=== PATIENT | male | born 1985 | race Caucasian/White ===

== ENCOUNTER 2020-10-03 19:02 | Emergency (ER) | payer OTHER, SELFPAY ==
--- NOTE | ~2020-10-03 | CT_ITS ---
EXAMINATION: CT brain wo con EXAM DATE: 10/03/2020 21:56 INDICATION: Seizure, right orbit injury. TECHNIQUE: Spiral CT of the head was performed without contrast. Axial, coronal and sagittal images were reviewed. The dose-length product (DLP) for this examination was 605.33 mGy-cm. The exposure w as tailored according to patient size, and iterative reconstruction (ASIR) was used as additional dos e reduction technique. There is no prior study for comparison. FINDINGS: There is no acute intraparenchymal hemorrhage. No evidence of intraparenchymal brain mass lesion. No evidence of acute infarction. There is no mass effect or midline shift. The ventricles are normal in size. There are no extra-axial collections. There are no acute calvarial fractures. T he orbits are unremarkable. Right periorbital soft tissue swelling. The visualized sinuses and masto id air cells are well aerated. IMPRESSION: 1. No acute intracranial findings. 2. Right periorbital swelling. Reviewed, dictated and finalized at location .
[2020-10-03 19:13] VITALS: BP 146/96; PULSE 88; RESP 13; TEMP 37.3; O2SAT 100
--- NOTE | 2020-10-03 19:41 | ECG_ITS ---
Measurements Intervals [place] Rate: 87 P: 72 AL: 170 QRS: 66 QRSD: 116 T: 53 QT: 366 QTc: 442 Interpretive Statements SINUS RHYTHM INTRAVENTRICULAR CONDUCTION DELAY DELAYED PRECORDIAL R/S TRANSITION BASELINE ARTIFACT- I, II, III, AVR, AVL, AVF, V1-V6 BORDERLINE ECG Electronically Signed On 10-04-2020 6:13:22 CDT by Jose Padron D.O.
--- NOTE | 2020-10-03 19:47 | ED.SEIZURE ---
HPI - Seizure General Chief Complaint: Seizure Stated Complaint: Seizure ?Alcohol Withdrawal Time Seen by Provider: 10/03/20 19:09 Source: patient and RN notes reviewed Mode of arrival: ambulatory Limitations: no limitations History of Present Illness HPI Narrative: This is a 35 year old male with history of alcohol abuse, seizures and chronic pancreatitis who presents for evaluation of alcohol withdrawal and abdominal pain. Patient states he had a seizure this morning, and he was evaluated at [facility]. He was given IVF, Ativan and vitamins at ER and he was discharged. HE states he was initially feeling ok but he started to suffered shakiness due to alcohol withdrawal so he came to [place]. He was concerned he may suffer another seizure without additional medication. He states he normally drinks approximately 12 pack beer per day, but he developed worse diffuse abdominal pain with nausea and vomiting 2 days ago. He states he has been unable to eat or drink. He reports his pain radiates into his back , and this is similar to previous episode of pancreatitis. He denies vomiting or diarrhea today but he states his abdominal pain is getting worse. Related Data Allergies Allergy/AdvReac Type Severity Reaction Status Date / Time amoxicillin Allergy Redness of Verified 10/03/20 19:58 Skin Penicillins Allergy Redness of Verified 10/03/20 19:58 Skin Review of Systems Review of Systems: All systems reviewed & are unremarkable except as noted in HPI and below PMFSH Past Medical History Medical History (Updated 10/04/20 @ 00:00 by Background Daemon) Alcohol abuse Alcohol withdrawal Hypertension Pancreatitis Surgical History Surgical History (Updated 10/03/20 @ 20:18 by Zunilda Howard MD) H/O wrist surgery Social History Social History (Updated 10/03/20 @ 20:18 by Zunilda Howard MD) Smoking status: Current every day smoker Alcohol intake: current Substance use type: marijuana Gender identity (if verbalized by the patient): Male Exam Const: General: no acute distress and alert Orientation/consciousness: patient oriented x3 HENMT: Head: normocephalic and atraumatic Face and sinus: face symmetric Eyes: Pupils: Equal, round and reactive pupils present EOM: EOMs intact bilaterally Other: right periorbital ecchymosis Chest: Chest palpation & inspection: normal inspection of the chest Resp: Effort & Inspection: normal respiratory effort and no retractions Auscultation: clear to auscultation bilaterally Cardio: Rate: regular rate Rhythm: regular rhythm Heart sounds: no murmurs GI: GI Palp: Yes Soft to palpation, Yes Tenderness to palpation present (GI) and No Guarding due to palpation present (GI) Auscultation: normal bowel sounds Neuro: General: patient oriented x3, moves all extremities and CN's II-XI intact bilaterally Psych: Affect: Anxious affect present Other: no hallucinations, he is tremulous Course Reevaluation(s) Reevaluation #1: PAtient states he feels better after taking librium. He feels comfortable with discharge home with librium. He states he has an appointment with his PCP Date: 10/03/20 Time: 22:06 Vital Signs Vital signs: Vital Signs Temperature 99.2 F 10/03/20 19:13 Pulse Rate 88 10/03/20 19:13 Respiratory Rate 13 10/03/20 19:13 Blood Pressure 146/96 H 10/03/20 19:13 Pulse Oximetry 100 10/03/20 19:13 Temperature 99.2 F 10/03/20 19:13 Pulse Rate 81 10/03/20 22:02 Respiratory Rate 18 10/03/20 22:02 Blood Pressure 117/77 10/03/20 22:02 Pulse Oximetry 99 10/03/20 22:02 MDM - Seizure Lab Data Attestation: I reviewed the patient's lab results. Result diagrams: 10/03/20 19:59 10/03/20 19:59 Labs: Lab Results 10/03/20 10/03/20 10/03/20 Range/Units 19:59 19:59 19:59 WBC 3.9 L (4.5-10.0) K/mm3 RBC 3.71 L (4.6-6.20) M/mm3 Hgb 11.6 L (14.0-18.0) g/dL H
[2020-10-03] MEDS: ONDANSETRON INJ 4 MG/2 ML VIAL IV PUSH (19:57)
[2020-10-03] MEDS: chlordiazePOXIDE (*CRX) 25 MG CAPSULE PO ×2 (19:57→21:15)
[2020-10-03] MEDS: PANTOPRAZOLE SODIUM IV 40 MG VIAL IV PUSH (19:57)
[2020-10-03 20:07] LABS: Basophils Percent Auto 0.5 % (0.2-1.2); Eosinophils Percent Auto 0.8 % (0-4.4); Hematocrit 35.4 % (42.0-52.0); Hemoglobin 11.6 g/dL (14.0-18.0); Immature Granulocyte Absolute 0.01 K/mm3 (0.00-0.031); Immature Granulocyte Percent A 0.3 % (0-0.5); Immature Platelet Fraction Pct 8.1 % (0.9-11.2); Lymphocytes Absolute Auto 0.53 K/mm3 (0.9-3.2); Lymphocytes Percent Auto 13.7 % (18.3-44.2); Mean Corpuscular HGB Conc 32.8 g/dl (32-36); Mean Corpuscular Hemoglobin 31.3 pg (26-34); Mean Corpuscular Volume 95.4 fl (80-100); Mean Platelet Volume 10.1 fl (7.4-10.4); Monocytes Absolute Auto 0.8 K/mm3 (0.1-0.6); Monocytes Percent Auto 19.7 % (2.6-8.5); Neutrophils Absolute Auto 2.5 K/mm3 (1.3-6.7); Platelet Count Result 60 k/mm3 (150-375); Red Blood Count 3.71 M/mm3 (4.6-6.20); Red Cell Distribution Width 15.1 % (11.5-14.5); White Blood Count 3.9 K/mm3 (4.5-10.0)
[2020-10-03 20:16] LABS: Ethanol < 10 mg/dL (<10)
[2020-10-03 20:17] LABS: Alanine Aminotransferase 97 U/L (4-50); Albumin Level 3.9 g/dL (3.5-5.1); Alkaline Phosphatase 118 U/L (38-126); Anion Gap 7 mmol/L (8-16); Aspartate Amino Transferase 230 U/L (17-59); Bilirubin,Total 1.3 mg/dL (0.2-1.3); Blood Urea Nitrogen 12 mg/dL (9-20); Calcium 8.9 mg/dL (8.4-10.2); Carbon Dioxide 27 mmol/L (22-30); Chloride 100 mmol/L (98-107); Estimated Glomerular Filt Rate > 60; Glucose 101 mg/dL (75-110); Lipase 121 U/L (23-300); Magnesium 1.6 mg/dL (1.6-2.3); Potassium 3.4 mmol/L (3.4-5.0); Sodium 134 mmol/L (137-145)
[2020-10-03 20:18] LABS: Platelet Estimate Decreased (Adequate)
[2020-10-03] MEDS: SODIUM CHLORIDE 0.9% IV 1,000 ML 999 ML IV CONT (20:22)
[2020-10-03 21:00] LABS: Add Urine Microscopic? YES; Appearance Urine Clear (Clear); Bilirubin Urine 2+ (Negative); Blood Urine Negative (Negative); Color Urine Amber (Yellow); Glucose Urine UA Negative (Negative); Ketones Urine 1+ mg/dL (Negative); Leukocyte Esterase Ur Negative LEU/UL (Negative); Mucus Urine Moderate /lpf; Nitrate Urine Negative (Negative); Protein Urine 3+ mg/dL (Negative); RBC Urine 0-2 /hpf (0-2); WBC Urine 0-3 /hpf
[2020-10-03 21:02] LABS: Specific Grav Ur 1.031 (1.001-1.035)
[2020-10-03 21:16] VITALS: BP 110/71; PULSE 89; RESP 16; O2SAT 100
[2020-10-03 22:02] VITALS: BP 117/77; PULSE 81; RESP 18; O2SAT 99
== END 2020-10-03 22:18 | disposition home or self-care (01) ==
PROVIDERS: Emergency Provider General Practice
DX: F10.939 Alcohol use, unspecified with withdrawal, unspecified (principal); Y90.0 Blood alcohol level of less than 20 mg/100 ml; I10 Essential (primary) hypertension; G40.909 Epilepsy, unspecified, not intractable, without status epilepticus
CPT/HCPCS: 36415; 70450; 80053; 80307; 81001; 83690; 83735; 85025; 85055; 93005; 96361; 96374; 96375; 99284; A9270; C9113; J2405; J7030

== ENCOUNTER 2020-11-03 13:11 | Observation (INO) | payer OTHER, SELFPAY ==
[2020-11-03] VITALS (10 sets, daily range): BP systolic 113–159; BP diastolic 68–99; PULSE 66–122; RESP 18–20; TEMP 36.6–37.1; O2SAT 97–100; BMI 23.8
--- NOTE | ~2020-11-03 | CT_ITS ---
EXAMINATION: CT abdomen pelvis w con DATE: 11/03/2020 14:11 INDICATION: Epigastric pain TECHNIQUE: Computed tomography (CT) of the abdomen and pelvis was performed with 100 mL Omnipaque-350 intravenous contrast. Automated exposure control and iterative reconstruction technique were employe d. The dose-length product was 346.49 mGy-cm. COMPARISON: None FINDINGS: Lung bases are clear. Heart size is normal. Small sliding-type hiatal hernia. Diffuse hepatic steatos is. 9 mm avidly enhancing nodule at the junctions of segment 4A and 4B of the liver most likely repre senting a flash filling hemangioma. Gallbladder, spleen, bilateral adrenal glands and kidneys are nor mal. There are multiple punctate dystrophic calcifications at the head of the pancreas likely sequela of chronic pancreatitis. No peripancreatic inflammatory stranding or peripancreatic fluid collection s to suggest acute pancreatitis although this can be radiographically occult. Small fat-containing um bilical hernia. Bowels including the appendix are normal. Bladder and prostate are normal. No free in traperitoneal gas or fluid. No pathologically enlarged abdominal or pelvic lymphadenopathy. Bones are unremarkable. IMPRESSION: 1. No acute intra-abdominal/pelvic process. There are however dystrophic calcifications at the head o f the pancreas suggesting chronic pancreatitis and given history of epigastric pain with correlate fo r elevated amylase and lipase levels as mild acute pancreatitis can be radiographically occult. 2. Small sliding-type hiatal hernia. 3. Diffuse hepatic steatosis. Reviewed, dictated and finalized at location A. IMPRESSION: 1. No acute intra-abdominal/pelvic process. There are however dystrophic calcif ications at the head of the pancreas suggesting chronic pancreatitis and given history of epigastric pain with correlate for elevated amylase and lipase level s as mild acute pancreatitis can be radiographically occult. 2. Small sliding-type hiatal hernia. 3. Diffuse hepatic steatosis.
--- NOTE | ~2020-11-03 | CT_ITS ---
EXAMINATION: CT brain wo con DATE: 11/03/2020 14:07 INDICATION: Seizure. TECHNIQUE: Computed tomography (CT) of the head was performed without intravenous contrast. Sagittal and coronal reconstructions were performed. The mA was adjusted according to patient size. Iterative reconstruction technique was employed. The dose-length product was 605.33 mGy-cm. COMPARISON: head CT dated 10/03/2020 FINDINGS: No acute intracranial hemorrhage, acute infarction or abnormal extra axial fluid collection. Ventricl es are normal and symmetric. No mass/mass effect. The orbits, paranasal sinuses and mastoid air cells are normal. IMPRESSION: 1. Normal head CT. Reviewed, dictated and finalized at location A. IMPRESSION: 1. Normal head CT.
--- NOTE | 2020-11-03 13:24 | ECG_ITS ---
Measurements Intervals [place] Rate: 116 P: 83 UT: 151 QRS: 89 QRSD: 88 T: 65 QT: 319 QTc: 445 Interpretive Statements SINUS TACHYCARDIA NONSPECIFIC T-WAVE ABNORMALITY- INFERIOR LEADS BASELINE ARTIFACT- I, II, III, AVR, AVF, V1-V3 ABNORMAL ECG Electronically Signed On 11-08-2020 12:31:34 CDT by Jose Padron D.O.
[2020-11-03 13:41] LABS: Basophils Percent Auto 0.8 % (0.2-1.2); Eosinophils Absolute Auto 0.1 K/mm3 (0-0.3); Eosinophils Percent Auto 2.1 % (0-4.4); Hematocrit 36.9 % (42.0-52.0); Hemoglobin 12.7 g/dL (14.0-18.0); Immature Granulocyte Absolute 0.02 K/mm3 (0.00-0.031); Immature Granulocyte Percent A 0.5 % (0-0.5); Lymphocytes Absolute Auto 1.19 K/mm3 (0.9-3.2); Lymphocytes Percent Auto 31.3 % (18.3-44.2); Mean Corpuscular HGB Conc 34.4 g/dl (32-36); Mean Corpuscular Hemoglobin 32.8 pg (26-34); Mean Corpuscular Volume 95.3 fl (80-100); Mean Platelet Volume 10.3 fl (7.4-10.4); Monocytes Absolute Auto 0.5 K/mm3 (0.1-0.6); Monocytes Percent Auto 13.2 % (2.6-8.5); Neutrophils Percent Auto 52.1 % (45.5-73.1); Platelet Count Result 68 k/mm3 (150-375); Red Blood Count 3.87 M/mm3 (4.6-6.20); Red Cell Distribution Width 14.3 % (11.5-14.5); White Blood Count 3.8 K/mm3 (4.5-10.0)
[2020-11-03] MEDS: diazePAM INJ (*CRX) 10 MG/2 ML SYRINGE 5 MG IV PUSH ×2 (13:43→17:22)
[2020-11-03] MEDS: ONDANSETRON INJ 4 MG/2 ML VIAL IV PUSH ×2 (13:43→17:22)
[2020-11-03] MEDS: SODIUM CHLORIDE 0.9% IV 1,000 ML 999 ML IV CONT ×2 (13:44)
[2020-11-03 13:49] LABS: Alanine Aminotransferase 128 U/L (4-50); Albumin Level 4.3 g/dL (3.5-5.1); Alkaline Phosphatase 156 U/L (38-126); Anion Gap 12 mmol/L (8-16); Aspartate Amino Transferase 362 U/L (17-59); Bilirubin,Total 1.8 mg/dL (0.2-1.3); Blood Urea Nitrogen 9 mg/dL (9-20); Calcium 9.2 mg/dL (8.4-10.2); Carbon Dioxide 24 mmol/L (22-30); Chloride 96 mmol/L (98-107); Estimated CRCL calculation 112 ml/min; Estimated Glomerular Filt Rate > 60; Glucose 119 mg/dL (65-110); Lipase 65 U/L (23-300); Sodium 132 mmol/L (137-145)
--- NOTE | 2020-11-03 14:00 | ED.GENADULT ---
HPI - General Adult General Chief complaint: Alcohol Stated complaint: seizures, shaky Time Seen by Provider: 11/03/20 13:23 History of Present Illness HPI narrative: Patient is a 35-year-old male who presents ER with reports of alcohol withdrawal. Patient reports he has history of alcoholism and alcohol withdrawal followed by alcohol withdrawal seizures. He thinks he had a seizure while in bed last night. Patient reports he has not had an alcoholic beverage for last 3 days. He is very shaky and tremulous. He reports epigastric pain as well as nausea and vomiting over last 3 days. This is complicated his ability to intake alcohol. He does not take seizure medication. No fevers or chills or sweats. Related Data Home Medications Medication Instructions Recorded Confirmed lisinopril 10 mg PO DAILY 11/03/20 11/03/20 thiamine HCl (vitamin B1) 100 mg PO DAILY 11/03/20 11/03/20 Allergies Allergy/AdvReac Type Severity Reaction Status Date / Time amoxicillin Allergy Redness of Verified 10/03/20 19:58 Skin Penicillins Allergy Redness of Verified 10/03/20 19:58 Skin Review of Systems Review of Systems: All systems reviewed & are unremarkable except as noted in HPI and below Constitutional: Constitutional: Denies chills, Denies fever(s) and Denies weakness ENT: Denies nasal congestion and Denies sore throat Cardiovascular: Cardiovascular: Denies chest pain and Denies radiating jaw, neck or arm pain Gastrointestinal: Gastrointestinal: Reports abdominal pain, Denies constipation, Denies diarrhea and Reports nausea Genitourinary: Genitourinary: Denies dysuria and Denies urinary frequency Musculoskeletal: Musculoskeletal: Denies back pain and Denies muscle cramps Neurologic: Denies headache(s), Denies focal weakness and Denies numbness Comments: Seizure PMFSH Past Medical History Medical History (Updated 11/04/20 @ 00:25 by Roberto Watts MD) Alcohol abuse Alcohol withdrawal Hypertension Pancreatitis Surgical History Surgical History (Updated 10/03/20 @ 20:18 by Zunilda Howard MD) H/O wrist surgery Family History Family History (Updated 11/03/20 @ 19:12 by Nancy Park RN) Father Hypertension Mother Hypertension Social History Social History (Updated 11/03/20 @ 22:12 by Debora Gonzalez MD) Years smoked: 10 Smoking status: Current every day smoker Alcohol intake: current Drinks per week: 60 Substance use: current Substance use type: marijuana Other substance usage details: recovering opioid addict Gender identity (if verbalized by the patient): Male Spiritual care concerns: No Exam Narrative: GENERAL: Ill-appearing, well-nourished, and in mild distress. HEAD: Normocephalic, atraumatic. EYES: PERRL and EOMI. right subconjunctival hemorrhage. ENT: Mucous membranes moist. CHEST: Clear to auscultation. No respiratory distress. HEART: Regular rate and rhythm. Normal peripheral pulses. ABDOMEN: Soft, tender palpation epigastrium with guarding, nondistended. EXTREMITIES: Normal range of motion. No edema. SKIN: Warm, dry, no rash. Scattered bruises in different stages of feeling to her arms and legs and face. NEURO: Alert and oriented x3. Diffuse tremors. PSYCH: Normal mood and affect. Course Course Emergency Course: Admit to hospitalist service. Pain controlled with morphine. Still very tremulous despite Valium. We will continue to medicate and hydrate. Vital Signs Vital signs: Vital Signs Temperature 97.8 F 11/03/20 13:22 Pulse Rate 122 H 11/03/20 13:22 Respiratory Rate 20 11/03/20 13:22 Blood Pressure 141/99 H 11/03/20 13:22 Pulse Oximetry 100 11/03/20 13:22 Temperature 98.4 F 11/03/20 20:00 Pulse Rate 66 11/03/20 22:00 Respiratory Rate 18 11/03/20 20:00 Blood Pressure 159/88 H 11/03/20 20:00 Pulse Oximetry 100 11/03/20 20:00 Medical Decision Making Vital Signs Vital Signs: Vital Signs Temper
[2020-11-03 14:41] LABS: INR 0.9; Prothrombin Time 11.8 Seconds (11.1-14.7)
[2020-11-03 14:42] LABS: Partial Thromboplastin Time 25.9 SECONDS (22.3-36.8)
[2020-11-03] MEDS: MORPHINE SULFATE (*CRX) 4 MG/ML INJ IV PUSH (14:56)
[2020-11-03 15:57] LABS: Add Urine Microscopic? YES; Appearance Urine Clear (Clear); Bilirubin Urine Negative (Negative); Blood Urine Negative (Negative); Color Urine Amber (Yellow); Glucose Urine UA Negative (Negative); Ketones Urine Trace mg/dL (Negative); Leukocyte Esterase Ur Negative LEU/UL (Negative); Mucus Urine Rare /lpf; Nitrate Urine Negative (Negative); Protein Urine 2+ mg/dL (Negative); Specific Grav Ur > 1.060 (1.001-1.035); Squamous Epithelial Cell Urine Rare /hpf (Few); WBC Urine 0-3 /hpf
--- NOTE | 2020-11-03 17:05 | PM.IMHP ---
H&P: HPI History of Present Illness Date/Time: 11/03/20 17:05 35-year-old alcoholic Hypertensive with tobacco use disorder presents to the emergency room with chief complaint of alcohol withdrawal seizure 3 days ago and again last night. Although he has no recollections of the events, he reports loss of time followed by episodes of confusion. Patient states that for the last 3 days he has had nausea vomiting unable to tolerate p.o. has not been able to drink alcohol and is entered into withdrawals. Additionally complains of abdominal pain that radiates to his right side. He states that this is the same type of pain he has had in the past when he has had acute worsening of his chronic pancreatitis. patient usually consumes 8 beers plus shots of liquor daily he has been in rehab at [facility] to times previously followed by 8-10 months of sobriety. at the time my interview he is noted to be diaphoretic, tremulous, reporting abdominal pain, nausea, anxiousness, a sensation of pins and needles in his feet and legs and his admission is recommended for management of alcohol withdrawal. Chief Complaint: alcohol withdrawal Review of Systems Review of Systems: All systems reviewed & are unremarkable except as noted in HPI and below PMFSH Past Medical History Medical History (Updated 11/03/20 @ 22:15 by Debora Gonzalez MD) Alcohol abuse Alcohol withdrawal Hypertension Pancreatitis Surgical History Surgical History (Updated 10/03/20 @ 20:18 by Zunilda Howard MD) H/O wrist surgery Family History Family History (Updated 11/03/20 @ 19:12 by Nancy Park RN) Father Hypertension Mother Hypertension Social History Social History (Updated 11/03/20 @ 22:12 by Debora Gonzalez MD) Years smoked: 10 Smoking status: Current every day smoker Alcohol intake: current Drinks per week: 60 Substance use: current Substance use type: marijuana Other substance usage details: recovering opioid addict Gender identity (if verbalized by the patient): Male Spiritual care concerns: No Meds Home Medications and Allergies Home Medications Medication Instructions Recorded Confirmed Type lisinopril 10 mg PO DAILY 11/03/20 11/03/20 History thiamine HCl (vitamin B1) 100 mg PO DAILY 11/03/20 11/03/20 History Allergies Allergy/AdvReac Type Severity Reaction Status Date / Time amoxicillin Allergy Redness of Verified 10/03/20 19:58 Skin Penicillins Allergy Redness of Verified 10/03/20 19:58 Skin Vital Signs Vital Signs - 24 hr 11/03/20 13:22 11/03/20 14:43 11/03/20 15:13 Temperature 97.8 F Pulse Rate 122 H 95 98 Respiratory Rate 20 20 20 Blood Pressure 141/99 H 126/83 137/95 H Pulse Oximetry 100 100 98 11/03/20 16:24 Temperature Pulse Rate 94 Respiratory Rate 20 Blood Pressure 116/85 Pulse Oximetry 100 Exam Const: General: no acute distress and uncomfortable HENMT: General nose exam: Normal nares present Mouth: Yes dry mucous membranes Eyes: Sclera: scleral abnormality ( right conjunctival hemorrhage) right EOM: EOMs intact bilaterally Neck: Neck: supple and no JVD Chest: Other: well-healed scar over right clavicle Resp: Auscultation: clear to auscultation bilaterally Cardio: Rate: regular rate Rhythm: regular rhythm GI: Inspection: non-distended GI Palp: Yes Soft to palpation, Yes Tenderness to palpation present (GI) and No Guarding due to palpation present (GI) Skin: General skin exam: normal color Other: multiple areas of ecchymosis and skin abrasions over arms legs hands and face Neuro: Cognition (Neuro): normal cognition Speech: normal speech Motor exam (neuro): 5/5 motor strength present throughout Extrem: General: normal exam except as noted ( above under scan) Psych: Mental Status: mental status grossly normal Affect: Anxious affect present Thought content: Yes Hallucination(s) present H&P: Results Labs Labs: Short CBC 11/03
[2020-11-03] MEDS: chlordiazePOXIDE (*CRX) 25 MG CAPSULE PO (17:22)
[2020-11-03] MEDS: THIAMINE HCL INJ 100 MG, FOLIC ACID INJ 1 MG, MULTIVITAMINS-12 INJ VIAL 1 5 ML, MULTIVI... 125 MG IV CONT (21:01)
[2020-11-03] MEDS: HYDROcodone/acetaminophen (*CRX) 5-325 MG TABLET 1 TAB PO (21:02)
[2020-11-03] MEDS: LORazepam INJ (*CRX) 2 MG/ML VIAL 1 MG IV PUSH (21:02)
[2020-11-03 22:12] LABS: Glucose Point of Care 88 mg/dl (65-105)
[2020-11-03 23:14] LABS: Creatine Kinase 110 U/L (55-170)
[2020-11-04] VITALS (16 sets, daily range): BP systolic 127–138; BP diastolic 82–100; PULSE 49–88; RESP 18–22; TEMP 35.7–37.1; O2SAT 99–100
[2020-11-04] MEDS: chlordiazePOXIDE (*CRX) 25 MG CAPSULE PO ×3 (01:04→16:58)
[2020-11-04] MEDS: HYDROcodone/acetaminophen (*CRX) 5-325 MG TABLET 1 TAB PO ×4 (01:04→18:53)
[2020-11-04] MEDS: LORazepam INJ (*CRX) 2 MG/ML VIAL 1 MG IV PUSH ×4 (01:05→18:54)
[2020-11-04] MEDS: ONDANSETRON INJ 4 MG/2 ML VIAL IV PUSH ×4 (01:05→18:54)
[2020-11-04 05:35] LABS: Basophils Percent Auto 0.7 % (0.2-1.2); Eosinophils Absolute Auto 0.1 K/mm3 (0-0.3); Eosinophils Percent Auto 1.9 % (0-4.4); Hematocrit 28.6 % (42.0-52.0); Hemoglobin 9.7 g/dL (14.0-18.0); Immature Granulocyte Absolute 0.01 K/mm3 (0.00-0.031); Immature Granulocyte Percent A 0.4 % (0-0.5); Immature Platelet Fraction Pct 8.8 % (0.9-11.2); Lymphocytes Absolute Auto 0.66 K/mm3 (0.9-3.2); Lymphocytes Percent Auto 24.4 % (18.3-44.2); Mean Corpuscular HGB Conc 33.9 g/dl (32-36); Mean Corpuscular Hemoglobin 32.4 pg (26-34); Mean Corpuscular Volume 95.7 fl (80-100); Mean Platelet Volume 11.2 fl (7.4-10.4); Monocytes Absolute Auto 0.4 K/mm3 (0.1-0.6); Monocytes Percent Auto 13.7 % (2.6-8.5); Neutrophils Absolute Auto 1.6 K/mm3 (1.3-6.7); Neutrophils Percent Auto 58.9 % (45.5-73.1); Platelet Count Result 42 k/mm3 (150-375); Red Blood Count 2.99 M/mm3 (4.6-6.20); Red Cell Distribution Width 14.1 % (11.5-14.5); White Blood Count 2.7 K/mm3 (4.5-10.0)
[2020-11-04 05:49] LABS: Alanine Aminotransferase 98 U/L (4-50); Albumin Level 3.2 g/dL (3.5-5.1); Alkaline Phosphatase 109 U/L (38-126); Anion Gap 7 mmol/L (8-16); Aspartate Amino Transferase 213 U/L (17-59); Bilirubin,Total 1.3 mg/dL (0.2-1.3); Blood Urea Nitrogen 8 mg/dL (9-20); Calcium 8.4 mg/dL (8.4-10.2); Carbon Dioxide 24 mmol/L (22-30); Chloride 100 mmol/L (98-107); Estimated CRCL calculation 146 ml/min; Estimated Glomerular Filt Rate > 60; Glucose 85 mg/dL (65-110); Magnesium 1.9 mg/dL (1.6-2.3); Potassium 4.1 mmol/L (3.4-5.0); Sodium 131 mmol/L (137-145)
[2020-11-04] MEDS: SODIUM CHLORIDE 0.9% IV 1,000 ML 125 ML IV CONT ×2 (06:22→14:25)
[2020-11-04] MEDS: NICOTINE (*PBKC) 14 MG PATCH 1 PATCH TRANSDERM (08:26)
[2020-11-04] MEDS: lisinopriL 10 MG TABLET PO (08:28)
[2020-11-04 08:40] LABS: Glucose Point of Care 84 mg/dl (65-105)
[2020-11-04 12:39] LABS: Glucose Point of Care 107 mg/dl (65-105)
--- NOTE | 2020-11-04 12:51 | PM.IMPN ---
Progress Note: A&P Assessment and Plan (1) Alcohol withdrawal seizure: Code(s): F10.239 - Alcohol dependence with withdrawal, unspecified; R56.9 - Unspecified convulsions Status: Acute Assessment and Plan: patient developed nausea and vomiting of unclear etiology but possibly related to his chronic pancreatitis. This resulted in his inability to consume alcohol resulting in withdrawal seizure. He believes this is the 5th time this has happened. Strongly encouraged alcohol cessation. No evidence of seizures unrelated to alcohol withdrawal. No plans for anti-epileptic medications at this time. Continue seizure precautions. (2) Alcohol withdrawal: Code(s): F10.239 - Alcohol dependence with withdrawal, unspecified Status: Acute Assessment and Plan: Patient developing alcohol withdrawal symptoms. Currently on scheduled Librium. CIWA 14-23 but better this morning at 5. He received a banana bag. Will resume thiamine and add folate. Increase activity level. Continue CIWA (3) Alcohol abuse: Code(s): F10.10 - Alcohol abuse, uncomplicated Status: Acute Assessment and Plan: Patient was educated about the benefits of abstaining from alcohol. Long discussions on how to deal with stressful situations and developing different coping mechanisms. Encouraged him to connect with AA. Social work to provide information about alcohol rehab (4) Hypertension: Code(s): I10 - Essential (primary) hypertension Status: Acute Assessment and Plan: Patient's blood pressure was reviewed on 11/04 Blood pressure remains reasonably well controlled. Will continue Lisinopril. (5) Pain, generalized: Code(s): R52 - Pain, unspecified Status: Acute Assessment and Plan: Pain more localized to the abdomen which seems to be chronic. Probably related to chronic pancreatitis possibly. This is longstanding. He is not on chronic narcotics at home. Continue to follow clinically. (6) Tobacco abuse: Code(s): Z72.0 - Tobacco use Status: Acute Assessment and Plan: Patient was educated about the benefits tobacco cessation. Nicotine patch ordered. (7) Alcoholic hepatitis: Code(s): K70.10 - Alcoholic hepatitis without ascites Status: Acute Assessment and Plan: AST 362 with ALT 128 and TB 1.8. All levels trending down. Suspect related to alcoholism. CT does show hepatic steatosis which could be contributing. GB is normal. He does have dystrophic calcifications at the head of the pancreas suggesting chronic pancreatitis felt the etiology of his chronic pain (8) Pancytopenia: Code(s): D61.818 - Other pancytopenia Status: Acute Assessment and Plan: All cell lines are decreased and appear similar to labs drawn 1 month ago. Low but stable. Suspect related to his alcoholism. Follow. Check B12/TSH (9) DVT prophylaxis: Code(s): Z29.9 - Encounter for prophylactic measures, unspecified Status: Acute Assessment and Plan: SCDs Subjective Date/time seen: 11/04/20 12:51 Interval history: 35yo male with alcoholism, HTN and chronic pancreatitis here for alcohol w/d seizures and n/v. Assuming care. Chart reviewed. Patient states he has had alcohol withdrawal seizures in the past. He was last at alcohol rehab about a year ago and stayed sober for about 8-10 months. Started drinking about 4 months ago after the loss of his dog and cat. He developed nausea and vomiting and was unable to take alcohol which resulted in the seizure. He does not follow with AA. He uses cognitive behavioral therapy instead. He slept well overnight and feels better this morning. No chest pain but does have right-sided abdominal pain which is sharp and chronic for about 20 years. Exam Narrative: AF 96.5 128/93 59 18 100% ra Gen - NARD lying semi-recumbent in bed Chest - CTA bilaterally,
[2020-11-04 14:58] LABS: Amphetamine Screen Urine Negative (Negative); Barbiturate Screen Urine Negative (Negative); Benzodiazepines Screen Urine Positive (Negative); Cannabinoid Screen Urine Negative (Negative); Cocaine Screen Urine Negative (Negative); Methadone Screen Urine Negative (Negative); Opiate Screen Urine Positive (Negative); Phencyclidine Screen Urine Negative (Negative)
[2020-11-04 16:43] LABS: Glucose Point of Care 91 mg/dl (65-105)
[2020-11-04] MEDS: THIAMINE HCL 100 MG TABLET PO (16:58)
[2020-11-04 20:12] LABS: Glucose Point of Care 107 mg/dl (65-105)
[2020-11-05] VITALS (7 sets, daily range): BP systolic 121–130; BP diastolic 82–94; PULSE 53–68; RESP 12–18; TEMP 36.5–36.8; O2SAT 98–100
[2020-11-05] MEDS: LORazepam INJ (*CRX) 2 MG/ML VIAL 1 MG IV PUSH (00:09)
[2020-11-05] MEDS: chlordiazePOXIDE (*CRX) 25 MG CAPSULE PO ×2 (00:09→10:28)
[2020-11-05 06:02] LABS: Basophils Percent Auto 0.9 % (0.2-1.2); Eosinophils Absolute Auto 0.1 K/mm3 (0-0.3); Eosinophils Percent Auto 3.1 % (0-4.4); Hematocrit 30.2 % (42.0-52.0); Hemoglobin 10.3 g/dL (14.0-18.0); Immature Granulocyte Absolute 0.02 K/mm3 (0.00-0.031); Immature Granulocyte Percent A 0.6 % (0-0.5); Immature Platelet Fraction Pct 10.8 % (0.9-11.2); Lymphocytes Absolute Auto 0.77 K/mm3 (0.9-3.2); Mean Corpuscular HGB Conc 34.1 g/dl (32-36); Mean Corpuscular Hemoglobin 32.9 pg (26-34); Mean Corpuscular Volume 96.5 fl (80-100); Mean Platelet Volume 10.5 fl (7.4-10.4); Monocytes Absolute Auto 0.4 K/mm3 (0.1-0.6); Monocytes Percent Auto 13.4 % (2.6-8.5); Neutrophils Absolute Auto 1.9 K/mm3 (1.3-6.7); Platelet Count Result 55 k/mm3 (150-375); Red Blood Count 3.13 M/mm3 (4.6-6.20); Red Cell Distribution Width 14.1 % (11.5-14.5); White Blood Count 3.2 K/mm3 (4.5-10.0)
[2020-11-05 06:13] LABS: Alanine Aminotransferase 85 U/L (4-50); Albumin Level 3.4 g/dL (3.5-5.1); Alkaline Phosphatase 108 U/L (38-126); Anion Gap 6 mmol/L (8-16); Aspartate Amino Transferase 144 U/L (17-59); Bilirubin,Total 1.1 mg/dL (0.2-1.3); Blood Urea Nitrogen 7 mg/dL (9-20); Calcium 8.8 mg/dL (8.4-10.2); Carbon Dioxide 25 mmol/L (22-30); Chloride 103 mmol/L (98-107); Estimated CRCL calculation 146 ml/min; Estimated Glomerular Filt Rate > 60; Glucose 88 mg/dL (65-110); Sodium 134 mmol/L (137-145)
[2020-11-05 07:15] LABS: Folic Acid 14.8 ng/mL (2.76->20)
[2020-11-05 08:28] LABS: Glucose Point of Care 87 mg/dl (65-105)
[2020-11-05] MEDS: ACETAMINOPHEN 325 MG TABLET 650 MG PO (10:27)
[2020-11-05] MEDS: FOLIC ACID 1 MG TABLET PO (10:28)
[2020-11-05] MEDS: THIAMINE HCL 100 MG TABLET PO (10:28)
[2020-11-05] MEDS: lisinopriL 10 MG TABLET PO (10:29)
[2020-11-05] MEDS: NICOTINE (*PBKC) 14 MG PATCH 1 PATCH TRANSDERM (10:29)
--- NOTE | 2020-11-05 11:23 | PM.DS ---
DS: Admitting Diagnosis Admitting Diagnosis Seizure DS: Discharge Diagnosis Discharge Diagnosis (1) Alcohol withdrawal seizure: Code(s): F10.239 - Alcohol dependence with withdrawal, unspecified; R56.9 - Unspecified convulsions Status: Acute (2) Alcohol withdrawal: Code(s): F10.239 - Alcohol dependence with withdrawal, unspecified Status: Acute (3) Alcohol abuse: Code(s): F10.10 - Alcohol abuse, uncomplicated Status: Acute (4) Hypertension: Code(s): I10 - Essential (primary) hypertension Status: Acute (5) Pain, generalized: Code(s): R52 - Pain, unspecified Status: Acute (6) Tobacco abuse: Code(s): Z72.0 - Tobacco use Status: Acute (7) Alcoholic hepatitis: Code(s): K70.10 - Alcoholic hepatitis without ascites Status: Acute (8) Pancytopenia: Code(s): D61.818 - Other pancytopenia Status: Acute DS: Summary Hospital Course Reason for hospitalization: 35yo male with alcoholism, HTN and chronic pancreatitis here for alcohol w/d seizures and n/v. Please see H&P for details Hospital Course: Patient states he has had alcohol withdrawal seizures in the past; most recently 2 weeks prior to this admission. He was last at alcohol rehab about a year ago and stayed sober for about 8-10 months. Started drinking about 4 months ago after the loss of his dog and cat. He developed nausea and vomiting and was unable to take alcohol which resulted in the seizure. He does not follow with AA. He uses cognitive behavioral therapy instead. The etiology of the nausea and vomiting is unclear but possibly related to his chronic pancreatitis. This resulted in his inability to consume alcohol resulting in withdrawal seizure. He believes this is the 5th time this has happened. No history of seizures unrelated to alcohol withdrawal. Seizure precautions orderd. We did not start anti-epileptic medications. Patient treated with scheduled Librium. CIWA as high as 23. He received a banana bag then switched to oral thiamine and folate. Monitored using CIWA protocol and levels improved. Patient was educated about the benefits of abstaining from alcohol. Long discussions on how to deal with stressful situations and developing different coping mechanisms. Encouraged him to connect with AA. Social work provided information about alcohol rehab. Blood pressure remained reasonably well controlled. We continued his Lisinopril. Pain more localized to the abdomen which seems to be chronic. Probably related to chronic pancreatitis possibly. This is longstanding. He is not on chronic narcotics at home. Patient was educated about the benefits tobacco cessation. We used Nicotine patches to help with withdrawal symptoms. Patient feels that he needs to focus on stopping alcohol stew before he can quit smoking. Recommend he speak with his doctor about smoking cessation once he feels stable with his sobriety. AST 362 with ALT 128 and TB 1.8 on admission with all levels trending down. Suspect related to alcoholism. CT does show hepatic steatosis which could be contributing to the elevated levels. GB is normal. He does have dystrophic calcifications at the head of the pancreas suggesting chronic pancreatitis that was felt the etiology of his chronic pain. Patient with pancytopenia with all cell lines decreased and appear similar to labs drawn 1 month ago. Low but stable. B12/Folate/TSH normal. Suspect related to his alcoholism. Patient feels much better today. His tremors almost resolved. he feels comfortable with discharge. Patient dicharged home in stable condition. Status at Discharge Cognitive/behavioral status at discharge: stable Time Spent with Patient Time attestation: Total time spent providing and/or coordinating discharge services: 35 minutes Time spent: Greater than 30 minutes Exam Narrative: AF 97.7 130/94 61 18 100% ra Gen - NARD Chest - CTA bila
[2020-11-05 11:55] LABS: Glucose Point of Care 111 mg/dl (65-105)
== END 2020-11-05 12:49 | disposition home or self-care (01) ==
LOC: ANHED 13:37 → ANHIMU 19:16
PROVIDERS: Admitting Provider Hospitalist; Emergency Provider Emergency Medicine; PCP Family Medicine; Visit Provider Internal Medicine
DX: F10.239 Alcohol dependence with withdrawal, unspecified (principal); K86.1 Other chronic pancreatitis; F10.20 Alcohol dependence, uncomplicated; K70.10 Alcoholic hepatitis without ascites; D61.818 Other pancytopenia; I10 Essential (primary) hypertension; F17.290 Nicotine dependence, other tobacco product, uncomplicated; F12.90 Cannabis use, unspecified, uncomplicated
CPT/HCPCS: 36415; 70450; 74177; 80053; 80307; 81001; 82550; 82607; 82746; 82948; 83690; 83735; 84443; 85025; 85055; 85610; 85730; 93005; 96361; 96374; 96375; 96376; 99285; A9270; G0378; G0379; J2060; J2270; J2405; J3360; J3411; J3475; J7030; Q9967

== ENCOUNTER 2021-03-29 15:05 | Emergency (ER) | payer OTHER, SELFPAY ==
[2021-03-29 15:11] VITALS: BP 143/95; PULSE 100; RESP 16; TEMP 36.6; O2SAT 97
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
[2021-03-29] MEDS: LORazepam (*CRX) 1 MG TABLET 2 MG PO (16:28)
[2021-03-29 17:03] LABS: Basophils Percent Auto 0.8 % (0.2-1.2); Eosinophils Absolute Auto 0.1 K/mm3 (0-0.3); Eosinophils Percent Auto 2.2 % (0-4.4); Hematocrit 39.4 % (42.0-52.0); Immature Granulocyte Absolute 0.01 K/mm3 (0.00-0.031); Immature Granulocyte Percent A 0.2 % (0-0.5); Lymphocytes Absolute Auto 1.31 K/mm3 (0.9-3.2); Lymphocytes Percent Auto 26.5 % (18.3-44.2); Mean Corpuscular Hemoglobin 30.2 pg (26-34); Mean Corpuscular Volume 91.6 fl (80-100); Mean Platelet Volume 9.4 fl (7.4-10.4); Monocytes Absolute Auto 0.4 K/mm3 (0.1-0.6); Monocytes Percent Auto 8.5 % (2.6-8.5); Neutrophils Absolute Auto 3.1 K/mm3 (1.3-6.7); Neutrophils Percent Auto 61.8 % (45.5-73.1); Platelet Count Result 188 k/mm3 (150-375); Red Cell Distribution Width 15.9 % (11.5-14.5)
[2021-03-29 17:12] LABS: Add Urine Microscopic? YES; Appearance Urine Clear (Clear); Bilirubin Urine Negative (Negative); Blood Urine Negative (Negative); Color Urine Yellow (Yellow); Glucose Urine UA Negative (Negative); Ketones Urine Negative (Negative); Leukocyte Esterase Ur Negative LEU/UL (Negative); Mucus Urine Rare /lpf; Nitrate Urine Negative (Negative); Protein Urine 2+ mg/dL (Negative); RBC Urine 0-2 /hpf (0-2); Squamous Epithelial Cell Urine Rare /hpf (Few); Urobilinogen Urine Negative mg/dL (<2.0); WBC Urine 0-3 /hpf
[2021-03-29 17:14] LABS: Ethanol 291 mg/dL (<10)
[2021-03-29 17:21] LABS: Amphetamine Screen Urine Negative (Negative); Barbiturate Screen Urine Negative (Negative); Benzodiazepines Screen Urine Negative (Negative); Cannabinoid Screen Urine Positive (Negative); Cocaine Screen Urine Negative (Negative); Methadone Screen Urine Negative (Negative); Opiate Screen Urine Negative (Negative); Phencyclidine Screen Urine Negative (Negative)
[2021-03-29 17:22] LABS: Alanine Aminotransferase 50 U/L (4-50); Albumin Level 4.5 g/dL (3.5-5.1); Alkaline Phosphatase 83 U/L (38-126); Anion Gap 13 mmol/L (8-16); Aspartate Amino Transferase 81 U/L (17-59); Bilirubin,Total 0.5 mg/dL (0.2-1.3); Blood Urea Nitrogen 10 mg/dL (9-20); Calcium 9.2 mg/dL (8.4-10.2); Carbon Dioxide 24 mmol/L (22-30); Chloride 107 mmol/L (98-107); Estimated CRCL calculation 127 ml/min; Estimated Glomerular Filt Rate > 60; Glucose 96 mg/dL (65-110); Potassium 4.6 mmol/L (3.4-5.0); Sodium 144 mmol/L (137-145)
[2021-03-29 17:52] LABS: Thyroid Stimulating Hormone 0.194 uIU/mL (0.465-4.680)
[2021-03-30] MEDS: LORazepam (*CRX) 1 MG TABLET PO ×2 (00:25→06:43)
[2021-03-30 08:25] LABS: Ethanol < 10 mg/dL (<10)
[2021-03-30 11:04] VITALS: BP 159/110; PULSE 106; RESP 16; O2SAT 100
== END 2021-03-30 11:04 | disposition home or self-care (01) ==
PROVIDERS: Emergency Medicine; Emergency Provider Emergency Medicine; PCP Family Medicine
DX: F10.10 Alcohol abuse, uncomplicated (principal); Y90.9 Presence of alcohol in blood, level not specified; F32.A Depression, unspecified; I10 Essential (primary) hypertension; F17.210 Nicotine dependence, cigarettes, uncomplicated
CPT/HCPCS: 36415; 80053; 80307; 81001; 84443; 85025; 99284; A9270